=== PATIENT | male | born 1990 | race Caucasian/White ===

== ENCOUNTER 2016-07-05 00:25 | Emergency (ER) | payer OTHER ==
[~2016-07-05] VITALS: Ht 175.3 cm; Wt 84.5 kg
[2016-07-05] MEDS ORDERED: ACYCLOVIR 200 MG CAP (ZOVIRAX) PO ONE (00:50)
[2016-07-05] MEDS ORDERED: ACETAMINOPHEN 500 MG TAB (TYLENOL) PO ONE (00:50)
[2016-07-05 01:02] VITALS: BP 140/95
== END 2016-07-05 01:21 | disposition home or self-care (01) ==
LOC: ED 00:26
DX: J06.9 Acute upper respiratory infection, unspecified (principal); K12.0 Recurrent oral aphthae; F17.210 Nicotine dependence, cigarettes, uncomplicated
CPT/HCPCS: 99282; 99283

== ENCOUNTER 2016-09-18 22:45 | Emergency (ER) | payer OTHER ==
[~2016-09-18] VITALS: Ht 172.7 cm; Wt 72.7 kg
[~2016-09-18 22:45] MED LIST: ACYC400T PO; AMOX1TAB12 PO; AMOX500C5 PO; ASPI325T4 PO; FEXO1TAB43 PO; OMEP10CA4 PO; OMEP20CA12 PO; ONDAN4ODT PO; SCR1T1 PO; TRM50T PO
[2016-09-18 23:18] VITALS: BP 119/73
== END 2016-09-18 23:15 | disposition home or self-care (01) ==
LOC: ED 22:46
DX: R07.89 Other chest pain (principal); F17.210 Nicotine dependence, cigarettes, uncomplicated
CPT/HCPCS: 93005; 93010; 99282; 99283